=== PATIENT | female | born 1950 | race Caucasian/White ===

== ENCOUNTER 2022-02-24 10:42 | Emergency (ER) | payer BC ==
--- NOTE | 2022-02-24 11:10 | ED Physician Documentation ---
PD HPI CHEST PAIN - Stated complaint Stated Complaint: CHEST PRESSURE,SHAKYNESS - History obtained from History obtained from: Patient - History of Present Illness Timing - onset: How many days ago (5) Timing - onset during: Rest (has mostly noted it when lying down at night, and has noted increased belching during the day. No exertional CP nor dyspnea.) PD PAST MEDICAL HISTORY - Present Medications Home Medications: Ambulatory Orders Medication Instructions Recorded Confirmed Losartan [Cozaar] 10 mg PO DAILY 02/24/22 02/24/22 - Allergies Allergies/Adverse Reactions: Allergies Allergy/AdvReac Type Severity Reaction Status Date / Time No Known Drug Allergies Allergy Verified 02/24/22 11:24 Results - Vitals Vitals: Vital Signs - 24 hr 02/24/22 02/24/22 02/24/22 10:52 11:56 12:26 Temperature 37.2 C Heart Rate 84 78 78 Respiratory 19 12 13 Rate Blood Pressure 170/94 H 131/86 H 131/86 H O2 Saturation 100 96 96 02/24/22 13:00 Temperature Heart Rate 78 Respiratory 18 Rate Blood Pressure 149/60 H O2 Saturation 99 Oxygen O2 Source Room air - EKG (time done) 10:58 Rate: Rate (enter#) (87) [place]: Normal Intervals: Normal ID QRS: Normal Ischemia: Normal ST segments, ST depression (diffuse leads, not in pattern. No ST elevations. ). No: ST elevation c/w ischemia Compare to prior EKG: Old EKG unavailable Computer interpretation: Agree with computer - Labs Labs: Laboratory Tests 02/24/22 02/24/22 02/24/22 11:13 11:13 11:13 WBC 5.2 RBC 4.96 Hgb 13.6 Hct 42.3 MCV 85.3 MCH 27.4 MCHC 32.2 RDW 12.3 Plt Count 249 MPV 9.4 Neut # (Auto) 3.9 Lymph # (Auto) 1.0 L [place] # (Auto) 0.3 Eos # (Auto) 0.0 Baso # (Auto) 0.0 Absolute Nucleated RBC 0.00 Nucleated RBC % 0.0 Sodium 140 Potassium 4.1 Chloride 104 Carbon Dioxide 27 Anion Gap 9.0 BUN 15 Creatinine 0.7 Estimated GFR (MDRD) 83 L Glucose 133 H Calcium 9.7 Magnesium 2.4 Total Bilirubin 0.4 AST 17 ALT 15 Alkaline Phosphatase 61 Troponin I High Sens < 2.3 L C-Reactive Protein < 1.0 B-Natriuretic Peptide Total Protein 6.8 Albumin 4.0 Globulin 2.8 Albumin/Globulin Ratio 1.4 Lipase 27 02/24/22 11:13 WBC RBC Hgb Hct MCV MCH MCHC RDW Plt Count MPV Neut # (Auto) Lymph # (Auto) Fountain # (Auto) Eos # (Auto) Baso # (Auto) Absolute Nucleated RBC Nucleated RBC % Sodium Potassium Chloride Carbon Dioxide Anion Gap BUN Creatinine Estimated GFR (MDRD) Glucose Calcium Magnesium Total Bilirubin AST ALT Alkaline Phosphatase Troponin I High Sens C-Reactive Protein B-Natriuretic Peptide 59 Total Protein Albumin Globulin Albumin/Globulin Ratio Lipase - Rads (name of study) chest xray Radiology: Prelim report reviewed (no acvute process), See rad report PD MEDICAL DECISION MAKING - ED course Complexity details: reviewed results, considered differential (nonexertional pain, mostly with lying and in bed. Consider GERD and esophagitis. But ECG is showing some ST depressions diffusely. Consider variant normal but no comparisons. Will get Trop/bnp labs, and also CRP for inflammatory pericarditis. Doees not have symptoms pericardial though. ), d/w patient Departure - Departure Disposition: Home, Self Care Clinical Impression: Chest discomfort GERD (gastroesophageal reflux disease) Qualifiers: Esophagitis presence: with esophagitis Esophagitis bleeding: without hemorrhage Qualified Code(s): K21.00 - Gastro-esophageal reflux disease with esophagitis, without bleeding Condition: Stable Record reviewed to determine appropriate education?: Yes Instructions: ED Chest Pain Atypical Unkn Cause, ED GERD Comments: Your EKG does have a mild general subtle depression of the ST segments which is likely a normal variant for you. I do not have a comparison. There is no portion of it to suggest heart attack per se. Your blood tests are normal without any signs of heart attack/heart failure. Your chest x-ray is clear without any signs of lung abnormality or fluid in the lungs. Your other blood test show normal electrolytes and blood count and a normal white count as well as inflammatory marker called the CRP. With these above test, there is no signs of a serious cause for your discomfort. The pattern of it is suggestive of reflux/esophagitis. I would suggest some acid reducing medicine such as famotidine/Pepcid twice daily for the next 7 to 10 days. Added in some antacid such as Maalox or Mylanta before bedtime and other times if needed for discomfort. Follow-up with your primary care back home if this is not resolved by the time you are home or if you notice any pattern of exertionally related chest pain or shortness of breath. I provided a copy of your EKG as well as your lab tests she can have a reference for your primary care. Discharge Date/Time: 02/24/22 13:21
[2022-02-24 11:36] LABS: BASOPHILS % (AUTO) 0.4 %; EOSINOPHILS % (AUTO) 0.4 %; HCT - HEMATOCRIT 42.3 % (37.0-47.0); HGB - HEMOGLOBIN 13.6 g/dL (12.0-16.0); LYMPHOCYTES % (AUTO) 18.4 %; MEAN CORPUSCULAR HEMOGLOBIN 27.4 pg (27.0-31.0); MEAN CORPUSCULAR HGB CONC 32.2 g/dL (32.0-36.0); MEAN CORPUSCULAR VOLUME 85.3 fL (81.0-99.0); MEAN PLATELET VOLUME 9.4 fL (7.9-10.8); MONOCYTES # (AUTO) 0.3 10^3/uL (0.0-1.0); MONOCYTES % (AUTO) 5.6 %; NEUTROPHILS # (AUTO) 3.9 10^3/uL (1.5-6.6); PLT - PLATELET COUNT 249 10^3/uL (130-450); RED BLOOD COUNT 4.96 10^6/uL (4.20-5.40); RED CELL DISTRIBUTION WIDTH 12.3 % (12.0-15.0); WHITE BLOOD COUNT 5.2 x10^3/uL (4.8-10.8)
--- NOTE | 2022-02-24 12:00 | XRAY Report ---
PROCEDURE: Chest 1 View X-Ray INDICATIONS: Chest Pain TECHNIQUE: One view of the chest was acquired. COMPARISON: None. FINDINGS: Surgical changes and devices: None. Lungs and pleura: No pleural effusions or pneumothorax. Lungs are clear. Mediastinum: The aorta is prominent and tortuous. The cardiac contours are within normal limits. Bones and chest wall: No suspicious bony lesions. Age-appropriate degenerative changes are seen. O verlying soft tissues appear unremarkable. IMPRESSION: Portable chest within normal limits for age. Reviewed by: Vishnu Baumann MD on 02/24/2022 10:59 AM [facility] Approved by: Vishnu Baumann MD on 02/24/2022 10:59 AM [facility] Station ID: [id number]
[2022-02-24 12:19] LABS: ALBUMIN/GLOBULIN RATIO 1.4 (1.0-2.2); ALKALINE PHOSPHATASE 61 IU/L (42-121); ALT ALANINE AMINOTRANSFERASE 15 IU/L (10-60); AST ASPARTATE AMINOTRANSFERASE 17 IU/L (10-42); BILIRUBIN,TOTAL 0.4 mg/dL (0.2-1.0); BUN - BLOOD UREA NITROGEN 15 mg/dL (6-20); CALCIUM 9.7 mg/dL (8.5-10.3); CARBON DIOXIDE - CO2 27 mmol/L (21-32); CHLORIDE 104 mmol/L (101-111); CREATININE 0.7 mg/dL (0.4-1.0); GFR - MDRD 83 (>89); GLUCOSE 133 mg/dL (70-100); LIPASE 27 U/L (22-51); MAGNESIUM 2.4 mg/dL (1.7-2.8); POTASSIUM 4.1 mmol/L (3.5-5.0); SODIUM 140 mmol/L (135-145); TOTAL PROTEIN 6.8 g/dL (6.7-8.2)
[2022-02-24 12:29] LABS: CRP - C-REACTIVE PROTEIN < 1.0 mg/dL (0-1.0)
[2022-02-24] MEDS ORDERED: FAMOTIDINE 20 MG TABLET PO STA (13:06)
[2022-02-24 13:20] VITALS: BP 149/60
== END 2022-02-24 13:21 | disposition home or self-care (01) ==
LOC: ED 10:42
DX: K21.00 Gastro-esophageal reflux disease with esophagitis, without bleeding (principal)
CPT/HCPCS: 36415; 71045; 80053; 83690; 83735; 83880; 84484; 85025; 86140; 93005; 99284; A9270